=== PATIENT | female | born 1965 | race Hispanic/Latino ===

== ENCOUNTER 2024-09-12 07:45 | Emergency (ER) | payer OTHER, SELFPAY ==
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
[2024-09-12 08:12] VITALS: BP 108/67; PULSE 84; RESP 17; TEMP 36.6; O2SAT 99
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
== END 2024-09-12 10:56 | disposition home or self-care (01) ==
PROVIDERS: Emergency Provider Physician Assistant
DX: S86.911A Strain of unspecified muscle(s) and tendon(s) at lower leg level, right leg, initial encounter (principal); S39.012A Strain of muscle, fascia and tendon of lower back, initial encounter; V49.40XA Driver injured in collision with unspecified motor vehicles in traffic accident, initial encounter
CPT/HCPCS: 72131; 73564; 99284